=== PATIENT | female | born 1990 | race Caucasian/White ===

== ENCOUNTER 2017-01-10 21:13 | Emergency (ER) | payer OTHER ==
[~2017-01-10] VITALS: Ht 144.8 cm; Wt 88.5 kg
[~2017-01-10 21:13] MED LIST: FERR240T9 PO; PRENAT PO
[2017-01-10 21:50] VITALS: Ht 144.8 cm; Wt 88.5 kg
--- NOTE | 2017-01-10 22:49 | ERD ---
ER Documentation Chief Complaint Date/Time DATE: 01/10/17 TIME: 22:47 Chief Complaint cough x1 week, lost voice 3 days ago HPI 26 year old female presents here in the ER for complaints of cough for 1 week. dry cough, patient doesn't cough up any phlegm or blood. no sob or wheezing. also complains of sorethroat, burning pain 6/10 scale, accompanied with lost of voice. Patient took [id number] NyQuil and DayQuil to help with symptoms with mild relief. Patient Is Sick with the Same Symptoms. ROS All systems reviewed and are negative except as per history of present illness. Medications Home Meds Reported Medications Ferrous Gluconate (Iron) 1 Tab Tablet, 1 TAB PO DAILY 02/20/14 Multivit/Min/Fol Ac/Iron/Pren* ( S*) 1 Tab Tab, 1 TAB PO DAILY, TAB 02/20/14 Allergies Allergies: Coded Allergies: No Known Drug Allergies (Unverified Allergy, Unknown, 02/27/14) PMhx/Soc Immunizations: Up to date Medical and Surgical Hx: pt denies Medical Hx, pt denies Surgical Hx Hx Alcohol Use: No Hx Substance Use: No Hx Tobacco Use: No Smoking Status: Never smoker FmHx Family History: coronary disease, diabetes, other Physical Exam Vitals Vital Signs Date Time Temp Pulse Resp B/P Pulse Ox O2 Delivery O2 Flow Rate FiO2 01/10/17 21:50 97.3 85 16 123/86 97 Physical Exam GENERAL: The child is well developed and nourished for age, interactive and vigorous appearing. No acute distress and nontoxic. HEENT: Atraumatic. Ears: Normal tympanic membrane, no erythema or bulging. No ear canal swelling. No ear discharge. Nose: Erythematous nasal turbinates with clear nasal discharge. Throat: oropharynx erythematous with postnasal drip. No tonsillar swelling or tonsillar exudates. No lymphadenopathy. LUNGS: Clear to auscultation. No accessory muscle use. No wheezing, no crackles. No signs or symptoms of respiratory distress. HEART: Regular rate and rhythm. No murmurs, clicks, rubs or gallops. ABDOMEN: Soft, nontender and nondistended. Bowel sounds positive. No rebound or guarding. No gross peritoneal signs. No Egan or McBurney point tenderness. No gross masses. BACK: No midline tenderness, no costovertebral tenderness. EXTREMITIES: There is no peripheral cyanosis or edema. No focal pain or notable trauma. Full range of motion. Good capillary refill. NEURO: The patient moves all 4 extremities with 5/5 strength. Cranial nerves are grossly intact. Normal mental status for age. SKIN: There is no apparent rash, petechiae, erythema or swelling. Good skin turgor. Results 24 hrs PROCEDURE: XR Chest. CLINICAL INDICATION: Cough. TECHNIQUE: Portable AP upright view of the chest was obtained. COMPARISON: None. FINDINGS: The cardiomediastinal silhouette is within normal limits. The lungs are clear. The diaphragm is normal in location. The costophrenic angles are sharp. The osseous structures are intact with no evidence for acute abnormality. RPTAT:HJJR IMPRESSION: No evidence for acute intrathoracic pathology. Physician Everett Date Time Electronically viewed and signed by Physician Everett on 01/10/2017 23:24 JR/ CC: FIDELINA MARTINEZ LIVING NURSE Procedures/MDM Medical Decision Making: Patient symptoms are most likely consistent with upper respiratory tract infection with laryngitis, which viral in origin. There is low suspicion for Pneumonia at this time since patients lungs sounds are clear, patient O2 saturation is normal and patient doesnt show any respiratory distress. Patients chest xray doesnt show infiltrates or any other cardiopulmonary emergencies at this time. There is low suspicion for other cardiopulmonary emergencies at this time such as CHF, Pulmonary Embolism, Pneumothorax, Aortic Aneurysm or any other cardiopulmonary emergencies at this time. There is low suspicion for sepsis. Patient appears well and is hemodynamically stable. Fever is controlled with medicines. Disposition: Home. Condition: Stable Prescriptions: Tessalon Perles, Zyrtec, ibuprofen, prednisone, albuterol Instructions: Patient is advised to take medications as prescribed. Patient is advised to rest. Patient advised to increase fluid intake, do humidifier at home and if possible, do salt water gargles. Patient is advised that if symptoms are worse, shortness of breath, uncontrolled fever, stridor, vomiting, worst signs and symptoms to return to emergency department immediately. Otherwise, patient is advised to follow up with primary doctor in 5-7 days. Departure Diagnosis: Primary Impression: URI (upper respiratory infection) URI type: unspecified viral URI Qualified Code: J06.9 - Viral upper respiratory tract infection Additional Impression: Laryngitis Condition: Stable Patient Instructions: Laryngitis, Uri, Viral, No Abx (Child) Additional Instructions: Patient is advised to take medications as prescribed. Patient is advised to rest. Patient advised to increase fluid intake, do humidifier at home and if possible, do salt water gargles. Patient is advised that if symptoms are worse, shortness of breath, uncontrolled fever, stridor, vomiting, worst signs and symptoms to return to emergency department immediately. Otherwise, patient is advised to follow up with primary doctor in 5-7 days. FIDELINA MARTINEZ NP January 10, 2017 22:49
--- NOTE | 2017-01-10 23:24 | RADRPT ---
PROCEDURE: XR Chest. CLINICAL INDICATION: Cough. TECHNIQUE: Portable AP upright view of the chest was obtained. COMPARISON: None. FINDINGS: The cardiomediastinal silhouette is within normal limits. The lungs are clear. The diaphragm is no rmal in location. The costophrenic angles are sharp. The osseous structures are intact with no elina dence for acute abnormality. RPTAT:HJJR IMPRESSION: No evidence for acute intrathoracic pathology. Physician Everett Date Time Electronically viewed and signed by Physician Everett on 01/10/2017 23:24 JR/
[2017-01-10] MEDS ORDERED: ALBU8.5H3 INH (23:30)
[2017-01-10] MEDS ORDERED: PRED50TA PO (23:30)
[2017-01-10] MEDS ORDERED: BENZ100C70 PO (23:30)
[2017-01-10] MEDS ORDERED: IBUP-1542 PO (23:30)
[2017-01-10] MEDS ORDERED: CETI10CA PO (23:30)
[2017-01-10 23:48] VITALS: BP 127/66; PULSE 83; RESP 18; TEMP 98
== END 2017-01-10 23:49 | disposition home or self-care (01) ==
LOC: FTE 21:13
DX: J06.9 Acute upper respiratory infection, unspecified (principal); J04.0 Acute laryngitis
CPT/HCPCS: 71010

== ENCOUNTER 2017-11-13 11:19 | Emergency (ER) | END 2017-11-13 15:25 | disposition home or self-care (01) ==

== ENCOUNTER 2018-04-12 21:57 | Inpatient (IN) | END 2018-04-16 12:30 | disposition home or self-care (01) | DRG 775 ==

== ENCOUNTER 2018-05-24 05:39 | Emergency (ER) | END 2018-05-24 07:25 | disposition home or self-care (01) ==

== ENCOUNTER 2018-11-05 04:02 | Emergency (ER) | payer OTHER ==
[~2018-11-05] VITALS: Ht 152.4 cm; Wt 85.9 kg
[~2018-11-05 04:02] MED LIST changes: +ALBU8.5H8 INH; +NITR-58 PO
[2018-11-05 04:06] VITALS: BP 145/79; PULSE 93; RESP 20; Ht 152.4 cm; Wt 85.9 kg
--- NOTE | 2018-11-05 05:11 | ERD ---
ER Documentation Chief Complaint Chief Complaint c/o cough and cold x1 month HPI This is a 28-year-old female presents emergency department with complaints of cough and congestion for about a month. Exposed to 6-month-old baby who has cough and congestion. LMP: Stated that was last month. A0. Denies headache, head injury, loss of consciousness, dizziness, neck pain, neck stiffness, throat pain, difficulty swallowing, difficulty breathing lying flat, shoulder pain, chest pain, back pain, abdominal pain, nausea, vomiting, constipation, diarrhea, urinary symptoms, or possibility being , loss of bowel and bladder control, trauma, injury, falls, difficulty walking due to pain, numbness or tingling sensation, calf pain, recent travel, recent major surgery in the last 3 weeks, calf pain, recent long travel, recent exposure to any illness, recent antibiotic use in the last 3 months, fever, chills, seizures. Past medical history: Surgical history: Social: Denies smoking, use of alcoholic beverages, use of illegal drugs. ROS All systems reviewed and are negative except as per history of present illness. Medications Home Meds Active Scripts Acetaminophen* (Tylophen*) 500 Mg Capsule, 1 CAP PO Q6H PRN for PAIN AND OR ELEVATED TEMP, #20 CAP Prov:MLILACOOPERLALITO F 11/05/18 Benzonatate* (Tessalon Perle*) 100 Mg Capsule, 100 MG PO Q8H PRN for COUGH, #15 CAP Prov:MLILACOOPEROVIAR F 11/05/18 Azithromycin* (Zithromax*) 250 Mg Tablet, 250 MG PO .ZPACK DIRECTED, #6 TAB TAKE 500 MG (2 TABS) THE FIRST DAY THEN 250 MG (1 TAB) DAYS 2-5 Prov:MLILACOOPEROVIAR F 11/05/18 Nitrofurantoin Monohyd Macrocr* (Macrobid*) 100 Mg Capsr, 100 MG PO BID for 7 Days, CAP Prov:ABDIEL LÓPEZ 05/24/18 Albuterol Sulfate* (Proair HFA*) 8.5 Gm Hfa.aer.ad, 2 PUFF INH Q4H PRN for WHEEZING AND SOB, #1 INHALER Prov:FIDELINA MARTINEZ NP 01/10/17 Reported Medications Ferrous Gluconate (Iron) 1 Tab Tablet, 1 TAB PO DAILY 02/20/14 Multivit/Min/Fol Ac/Iron/Pren* ( S*) 1 Tab Tab, 1 TAB PO DAILY, TAB 02/20/14 Allergies Allergies: Coded Allergies: No Known Drug Allergies (Unverified Allergy, Unknown, 11/05/18) PMhx/Soc Hx Alcohol Use: No Hx Substance Use: No Hx Tobacco Use: No Physical Exam Vitals Vital Signs Date Temp Pulse Resp B/P (MAP) Pulse Ox O2 O2 Flow FiO2 Time Delivery Rate 11/05/18 97.5 93 20 145/79 99 04:06 (101) Physical Exam Const: No acute distress Head: Atraumatic Eyes: Normal Conjunctiva ENT: Normal External Ears, Nose and Mouth. Bilateral ears: TMs are not e rythematous. No bleeding. No discharge with no mass or tenderness. No hearing loss. Nose: There is no frontal material sinus tenderness to palpation. Throat: Uvula is midline and expiratory tonsils are +1 bilaterally without redness without exudates. Tolerating secretions good. He repeats which voluntary status. Neck: Full range of motion. No meningismus. No nuchal rigidity. No signs of major irritation. Resp: Clear to auscultation bilaterally. No accessory muscle use in breathing. Cardio: Regular rate and rhythm, no murmurs Abd: Soft, non tender, non distended. Normal bowel sounds Skin: No petechiae or rashes Back: No midline or flank tenderness Ext: No cyanosis, or edema Neur: Awake and alert. No neurological deficits. Psych: Normal Mood and Affect Results 24 hrs Laboratory Tests Test 11/05/18 06:18 POC Beta HCG, Qualitative NEGATIVE Procedures/MDM Diagnostic tests: POC urine : Negative. Chest x-ray:1. No acute abnormalities. Treatment: NA. Re-evaluation: No accessory muscles use in breathing. Not in distress. Differential diagnosis I have low suspicion for sepsis, meningitis, bronchospasm, pneumonia. Final diagnosis: Bronchitis. Prescription: Azithromycin. Tessalon Perles. Tylenol. Follow-up with PCP in the next 24-48 hours. Come back here in the emergency department for any new symptoms or any worsening symptoms. All questions and concerns were answered. Patient and family members verbalized understanding and agreed with plan of care. Hemodynamically stable on discharge. Departure Diagnosis: Primary Impression: Bronchitis Condition: Stable Additional Instructions: Follow-up with PCP in the next 24-48 hours. Come back here in the emergency department for any new symptoms or any worsening symptoms. LALITO ORELLANA Nov 05, 2018 05:11
[2018-11-05] MEDS ORDERED: ACET500C5 PO (06:11)
[2018-11-05] MEDS ORDERED: AZIT250T PO (06:11)
[2018-11-05] MEDS ORDERED: BENZ-6 PO (06:11)
== END 2018-11-05 06:38 | disposition home or self-care (01) ==
LOC: FTE 04:02
DX: J40 Bronchitis, not specified as acute or chronic (principal)
CPT/HCPCS: 71046; 81025; Z7502